=== PATIENT | male | born 1950 | race Caucasian/White ===

== ENCOUNTER → 2017-02-22 | Outpatient (CLI) | payer OTHER | LOC: FIMAGING 10:33 | PROVIDERS: ATTEND Family Medicine | DX: M51.36 Other intervertebral disc degeneration, lumbar region (principal); M41.86 Other forms of scoliosis, lumbar region; M43.16 Spondylolisthesis, lumbar region ==

== ENCOUNTER → 2017-03-10 | Outpatient (CLI) | payer OTHER | LOC: FIMAGING 10:10 | PROVIDERS: ATTEND Family Medicine | DX: M48.06 Spinal stenosis, lumbar region (principal); M43.16 Spondylolisthesis, lumbar region; M12.88 Other specific arthropathies, not elsewhere classified, other specified site; M51.36 Other intervertebral disc degeneration, lumbar region; M51.37 Other intervertebral disc degeneration, lumbosacral region; M51.26 Other intervertebral disc displacement, lumbar region; M99.73 Connective tissue and disc stenosis of intervertebral foramina of lumbar region ==

== ENCOUNTER → 2017-07-12 | Outpatient (CLI) | payer OTHER | LOC: FIMAGING 13:34 | PROVIDERS: ATTEND Physical Medicine & Rehabilitation Neuromuscular Medicine | DX: M51.36 Other intervertebral disc degeneration, lumbar region (principal) ==

== ENCOUNTER 2018-05-26 08:13 | Inpatient (IN) | payer OTHER ==
[2018-05-26] MEDS ORDERED: morphINE PF 0.2 MG in SYRINGE INTRATHECAL 1 SYR IT ONE (08:35)
[2018-05-26] MEDS ORDERED: ACETAMINOPHEN 500 MG TAB PO ONE (08:35)
[2018-05-26] MEDS ORDERED: ceFAZolin 2 GM/DEXTROSE 100 ML IV ONE (08:35)
[2018-05-26] MEDS ORDERED: GABAPENTIN 300 MG CAP PO ONE (08:35)
[2018-05-26] MEDS ORDERED: LR 1,000 ML IV ONE (08:40)
[2018-05-26] MEDS ORDERED: SURGIFLO MATRIX KIT WITH THROMBIN 8 ML TP ONE (08:52)
[2018-05-26] MEDS ORDERED: THROMBIN (BOVINE) 20,000 UNIT VIAL TP ONE (08:52)
[2018-05-26] MEDS ORDERED: BUPIVACAINE 0.25% 30 ML SDV ONE (08:52)
[2018-05-26] MEDS ORDERED: CHLORHEXIDINE GLUC HIBICLENS 118 ML BTL TP ONE (08:52)
[2018-05-26] MEDS ORDERED: EPINEPHrine 1 MG/ML INJ ONE (08:52)
[2018-05-26] MEDS ORDERED: BACITRACIN 50,000 UNITS/10 ML SYR IRR ONE (08:53)
--- NOTE | 2018-05-26 09:37 | PDHPUP ---
History & Physical Update H&P update statement: This history and physical update is based on an assessment of the patient which was completed after admission or registration (within 24 hours), but prior to the surgery/procedure. H&P update: H&P reviewed & patient examined, no change in patient's condition since H&P completed (Consents signed and site marked. All questions answered.)
[2018-05-26] MEDS ORDERED: MIDAZOLAM 2 MG/2 ML VIAL IVP ONE (09:58)
[2018-05-26] MEDS ORDERED: MIDAZOLAM 2 MG/2 ML VIAL ONE (09:59)
--- NOTE | 2018-05-26 10:02 | PDANEPAE ---
ANE Past Medical History - Cardiovascular History Hx Hypertension: No Hx Arrhythmias: No Hx Chest Pain: No Hx Coronary Artery / Peripheral Vascular Disease: No Hx CHF / Valvular Disease: No Hx Palpitations: No - Pulmonary History Hx COPD: No Hx Asthma/Reactive Airway Disease: No Hx Recent Upper Respiratory Infection: No Hx Oxygen in Use at Home: No Hx Sleep Apnea: No Sleep Apnea Screening Result - Last Documented: Negative - Neurologic History Hx Cerebrovascular Accident: No Hx Seizures: No Hx Dementia: No - Endocrine History Hx Diabetes: No Obesity: no - Renal History Hx Renal Disorders: No - Liver History Hx Hepatic Disorders: No - Neurological & Psychiatric Hx Hx Neurological and Psychiatric Disorders: No - Cancer History Hx Cancer: No - Congenital Disorder History Hx Congenital Disorders: No - GI History GERD: no Hx Gastrointestinal Disorders: No - Other Health History Other Health History: NEG - Chronic Pain History Chronic Pain: Yes (MELIA LEGS & LOW BACK) - Surgical History Prior Surgeries: COLONOSCOPY. TONSILLECTOMY ANE Review of Systems Review of Systems: - Exercise capacity METS (RN): 5 METS ANE Patient History - Allergies Allergies/Adverse Reactions: No Known Allergies Allergy (Unverified 05/05/18 13:47) - Home Medications Home medications: home medication list seen and reviewed Home Medications: Ibuprofen [Motrin (*)] 200 mg PO DAILY PRN 05/05/18 [Last Taken 05/26/18] oxyCODONE IR [Oxycodone Ir (*)] 5 mg PO Q4HRS PRN 05/05/18 [Last Taken 05/26/18] Tylenol Extra Strength 05/26/18 [Last Taken 05/26/18] - NPO status NPO Status: no food or drink >8 hours NPO Since - Liquids (Date): 05/26/18 NPO Since - Liquids (Time): 00:01 NPO Since - Solids (Date): 05/25/18 NPO Since - Solids (Time): 07:00 - Anes Hx Anes Hx: no prior problems - Smoking Hx Smoking Status: Former smoker - Family Anes Hx Family Hx Anesthesia Complications: NEG ANE Labs/Vital Signs - Vital Signs Blood Pressure: 142/88 Heart Rate: 65 Respiratory Rate: 16 O2 Sat (%): 96 Height: 177.8 cm Weight: 79.379 kg ANE Physical Exam - Airway Neck exam: FROM Mallampati Score: Class 1 Mouth exam: normal dental/mouth exam - Pulmonary Pulmonary: no respiratory distress, no rales or rhonchi, clear to auscultation - Cardiovascular Cardiovascular: regular rate and rhythym, no murmur, rub, or gallop - ASA Status ASA Status: II ANE Anesthesia Plan Anesthesia Plan: general endotracheal anesthesia
[2018-05-26] MEDS ORDERED: KETAMINE 500 MG/10 ML VIAL ONE (10:13)
[2018-05-26] MEDS ORDERED: PROPOFOL 200 MG/20 ML VIAL ONE (10:14)
[2018-05-26] MEDS ORDERED: DEXAMETHASONE 4 MG/ML VIAL ONE ×2 (10:23)
[2018-05-26] MEDS ORDERED: ONDANSETRON 4 MG/2 ML VIAL ONE (10:23)
[2018-05-26] MEDS ORDERED: DEXMEDETOMIDINE HCL 400 MCG in NS 100 ML IV SCH (10:30)
[2018-05-26] MEDS ORDERED: ROCURONIUM 50 MG/5 ML VIAL ONE (10:53)
[2018-05-26] MEDS ORDERED: PHENYLEPHRINE HCL 100 MCG/ML SYR ONE (10:59)
[2018-05-26] MEDS ORDERED: PHENYLEPHRINE 10 MG/ML SDV ONE (12:07)
[2018-05-26] MEDS ORDERED: GLYCOPYRROLATE 0.2 MG/1 ML VIAL ONE ×2 (12:19→13:53)
[2018-05-26] MEDS ORDERED: ACETAMINOPHEN 500 MG TAB PO PRN (13:40)
[2018-05-26] MEDS ORDERED: ONDANSETRON 4 MG/2 ML VIAL IVP PRN ×2 (13:40→16:13)
[2018-05-26] MEDS ORDERED: PHENYLEPHRINE HCL 100 MCG/ML SYR IVP PRN (13:40)
[2018-05-26] MEDS ORDERED: fentaNYL 100 MCG/2 ML INJ IVP PRN (13:40)
[2018-05-26] MEDS ORDERED: oxyCODONE IR 5 MG TAB PO PRN (13:40)
[2018-05-26] MEDS ORDERED: LR 500 ML IV PRN (13:40)
[2018-05-26] MEDS ORDERED: HYDROCODONE/APAP 5/325 TAB PO PRN (13:40)
[2018-05-26] MEDS ORDERED: DIAZEPAM 5 MG/ML 1 ML SYR IVP PRN (13:40)
[2018-05-26] MEDS ORDERED: PROMETHAZINE HCL 25 MG/ML INJ IVP PRN (13:40)
[2018-05-26] MEDS ORDERED: NALOXONE HCL 0.4 MG/ML INJ IVP PRN (13:40)
[2018-05-26] MEDS ORDERED: ceFAZolin 1 GM VIAL ONE (14:05)
--- NOTE | 2018-05-26 14:41 | POSTANESTH ---
Post Anesthetic Evaluation Cardiovascular Status: Normal, Stable, Similar to Pre-Op Cond Respiratory Status: Normal, Stable, Similar to Pre-op Cond. Level of Consciousness/Mental Status: Can Participate in Eval, Moderately Sleepy Pain Control: Adequate, Prn Tx Ordered Nausea/Vomiting Control: Adequate, Prn Tx Ordered Complications Possibly Related to Anesthesia: None Noted
--- NOTE | 2018-05-26 14:49 | POSTOPPROG ---
Post Op Note Date of Operation: 05/26/18 Surgeon: Maximino Orellana Stage Setting Painter Apprentice: Devaughn Garrett PA-C Anesthesiologist: Mary Jane Anesthesia: GET(General Endotracheal) Pre-op Diagnosis: lumbar degenerative disc disease Post-op Diagnosis: same Indication: pain, nerve compression Procedure: L4-S1 TLIFs and PSF with bilateral foraminotomies Findings: see dictation Inf/Abcess present in the surg proc area at time of surgery?: No Depth: Organ Space EBL: 100-500 Complications: none Drains: Juan Reid Specimen(s): none PA Addendum - Addendum .: S: Pt in PACU waking up from anesthesia. C/o low back pain. O: Sleepy but awakens easily NAD VSS Follows all commands Motor 5/5 BUE/BLE +LT Incision dressed [id number] Terrell A: 67 yo M s/p L4-S1 TLIFs and PSF with bilateral foraminotomies P: PT/OT Pain management TEDs, SCDs, lovenox POD#1 Brace when OOB Post op xrays pending tonny terrell in am Call NS with any issues D/w Dr Orellana
[2018-05-26] MEDS ORDERED: fentaNYL 100 MCG/2 ML INJ ONE (15:05)
--- NOTE | 2018-05-26 15:23 | GOP ---
[f rep st] OPERATIVE REPORT DATE OF OPERATION: 05/26/2018 SURGEON: Maximino Orellana MD ASSOCIATE MEDICAL DIRECTOR: LOGAN Sol ANESTHESIA: General. PREOPERATIVE DIAGNOSIS: 1. L4-S1 lumbar spondylosis. 2. Severe spinal stenosis L4-L5. 3. Lateral recess and foraminal stenosis L4-L5, L5-S1. 4. Lower extremity radiculopathy. 5. Low back pain. 6. Treatment refractory to nonoperative intervention. POSTOPERATIVE DIAGNOSIS: 1. L4-S1 lumbar spondylosis. 2. Severe spinal stenosis L4-L5. 3. Lateral recess and foraminal stenosis L4-L5, L5-S1. 4. Lower extremity radiculopathy. 5. Low back pain. 6. Treatment refractory to nonoperative intervention. PROCEDURE PERFORMED: 1. Posterior arthrodesis with approach to L4, L5, and S1. 2. Posterolateral fusion with bilateral pedicle screw placement at L4, L5, and S1 from the [employer] 4.75 system. 3. Posterolateral fusion on the right between L4-S1 with morselized autograft and allograft. 4. Decompressive laminectomy with bilateral medial facetectomies and foraminotomies, L4-L5 and L5-S1. 5. Left-sided L4-5 transforaminal lumbar interbody fusion with a 7 x 28 mm titanium PEEK Elevate cage filled with morselized autograft and allograft. 6. Left-sided L5-S1 transforaminal lumbar interbody fusion with a 6 x 26 mm titanium coated PEEK cage filled with morselized autograft and allograft. 7. Use of intraoperative 3D Stealth navigation. 8. Use of intraoperative fluoroscopy, less than 1 hour physician time. 9. Use of neuromonitoring. 10. Use of the operting microscope. 11. Injection of preservative-free intrathecal narcotics. FINDINGS: per imaging SPECIMENS: None. ESTIMATED BLOOD LOSS: 150 cc. INDICATIONS: The patient is a 67-year-old gentleman who unfortunately has been suffering from long-standing history of low back pain with left lower extremity radiculopathy. He has severe spinal stenosis L4-L5 and foraminal stenosis with lateral recess stenosis bilateral L4-5, L5-S1. After discussion of the risks, benefits, and alternatives after failing a prevention, we decided to proceed forth with surgery as described above. DESCRIPTION OF PROCEDURE: The patient was brought to the operating theater and underwent general endotracheal anesthesia without complications. He had Venodynes, RACHEL hose, and appropriate lines placed by Anesthesia. He was flipped prone on the Juan table. All bony processes inspected and padded. The lower lumbar region was prepped and draped in the usual sterile surgical fashion. A time-out was completed per protocol, and the patient received antibiotics within 1 hour of incision. Using lateral fluoroscopy and a spinal needle, we picked our entry point to the L4 through S1 levels. This was marked in the midline ad the incision infiltrated with Marcaine with epinephrine. The incision was taken down with the scalpel blade and then using monopolar, taken down the midline to the lumbodorsal fascia and subperiosteal dissection carried out to the transverse processes of L4, L5, S1 bilaterally with care to preserve the L3-4 facet joint. Deep retractors placed to maintain exposure. We confirmed our level using lateral fluoroscopy. We attached the 3D Stealth navigation clamp to the spinous process of L5 and completed a 3D Stealth navigation spin. Using 3D Stealth navigation, we placed the pilot safety inspector holes for the bilateral pedicle screws into L4, L5, and S1. All holes were manually palpated with no evidence of any cortical breaches. We then tapped and placed 6.5 x 45 mm screws bilaterally in L4, 6.5 x 55 mm screws bilaterally at L5, and 6.5 x 55 mm screws bilaterally in S1, all from [employer] Solera 4.75 system. Another 3D Stealth navigation spin demonstrated good placement of the hardware. At this point, the microscope was brought into the field to assist with microscopic dissection and to maintain illumination and magnification. Using a combination of the bur tip on the drill bit, Kerrison punches, and a Leksell rongeur, we completed a decompressive laminectomy with bilateral medial facetectomies. We also completed a right-sided foraminotomy with the banana Kerrison until we felt that everything was well decompressed on manual palpation. We completed an aggressive facetectomies on the left side between L4 -L5 and L5-S1. We distracted the interspace at L4-5 and completed a left-sided L4-5 diskectomy. We prepared the cartilaginous endplates and measured interbody space. We placed a 7 x 28 mm titanium PEEK Elevate cage filled with morselized autograft and allograft anteriorly toward the midline. We packed additional morcellized autograft in the disk space for interbody fusion. We let down the distraction and moved down to the L5-S1 interlaminar space. We completed a left-sided L5-S1 diskectomy and prepared the cartilaginous endplates. We measured the interbody space and placed a 6 x 26 mm titanium coated PEEK cage filled with morselized autograft and allograft anteriorly toward the midline. We let down distraction and decorticated the bone on the right side between L4 and S1. The wound was irrigated copiously with bacitracin irrigation. We placed 2 lordotic rods into the heads of the screws between L4 and S1, secured them down with cap screws, which were then tightened to the telephone sterilizer's setting. We placed morselized autograft and allograft on the right side between L4-S1 for posterolateral fusion. We injected preservative-free intrathecal narcotics. A drain was left in subfascial space and the wound then closed in multiple layers, including Vicryl sutures to deep layers and Dermabond for the skin. The patient's wounds were dressed sterilely. He was then flipped supine onto the transfer cart, where he was awakened, extubated, taken to the recovery room in stable condition. There were no changes in neuro monitoring. The sponge and instrument count were correct at the end of the case. COMPLICATIONS: None. /[id number]/MODL MTDD
[2018-05-26] MEDS ORDERED: ONDANSETRON DISINTEGRATING 4 MG TAB PO PRN (16:13)
[2018-05-26] MEDS ORDERED: HYDROmorphONE/DILAUDID 1 MG/ML INJ IVP PRN (16:13)
[2018-05-26] MEDS ORDERED: LACTULOSE 20 GM/30 ML UDCUP PO PRN (16:13)
[2018-05-26] MEDS ORDERED: BISACODYL 10 MG SUPP PR PRN (16:13)
[2018-05-26] MEDS ORDERED: MAGNESIUM HYDROXIDE 30 ML UDCUP PO PRN (16:13)
[2018-05-26] MEDS ORDERED: POLYETHYLENE GLYCOL 3350 17 GM PKT PO PRN (16:13)
[2018-05-26] MEDS ORDERED: diphenhydrAMINE 25 MG CAP PO PRN (16:13)
[2018-05-26] MEDS ORDERED: NS 1,000 ML IV SCH (16:15)
--- NOTE | 2018-05-26 16:50 | PDMN ---
Medical Necessity Medical necessity: [facility] IP only surgery; cpt 57081 & [id number] Lumbar Fusion
[2018-05-26] MEDS: PROPARACAINE 0.5% 15 ML OPHT DROP OP SCH ×2 (17:56→21:12)
[2018-05-26] MEDS: ceFAZolin 2 GM/DEXTROSE 100 ML IV SCH (17:56)
[2018-05-26] MEDS: METHOCARBAMOL 750 MG TAB PO PRN (18:28)
[2018-05-26] MEDS: ACETAMINOPHEN 500 MG TAB PO SCH (21:11)
[2018-05-26] MEDS: FAMOTIDINE 20 MG TAB PO SCH (21:11)
[2018-05-26] MEDS: SENNOSIDES/DOCUSATE SODIUM TAB PO SCH (21:11)
[2018-05-26] MEDS: oxyCODONE IR 5 MG TAB PO PRN (21:52)
[2018-05-27] MEDS: ceFAZolin 2 GM/DEXTROSE 100 ML IV SCH (03:02)
[2018-05-27] MEDS: METHOCARBAMOL 750 MG TAB PO PRN ×2 (06:19→15:08)
[2018-05-27] MEDS: ACETAMINOPHEN 500 MG TAB PO SCH ×3 (06:19→23:06)
[2018-05-27] MEDS: PROPARACAINE 0.5% 15 ML OPHT DROP OP SCH ×3 (06:20→16:09)
--- NOTE | 2018-05-27 09:22 | NEUSURGPN ---
Assessment/Plan: A: 67 yo M s/p L4-S1 TLIFs and PSF with bilateral foraminotomies POD#1 P: PT/OT Pain management TEDs, SCDs, lovenox POD#1 Brace when OOB Post op xrays pending Continue PHU drain Call NS with any issues D/w Dr Orellana Subjective: Pt resting in bed, states pain is well managed and doing ok. Objective: AAOx3 NAD VSS MAEx4 Motor 5/5 BLE +LT Incision dressed Urinary Catheter in Place: No Catheter Insertion Date: 05/26/18 - Physician Discussed Patient with : Esteban Neurosurgery Physical Exam - Vitals, I&O, Labs I and O 05/26/18 05/27/18 05/28/18 05:59 05:59 05:59 Intake Total 2900 Output Total 2365 Balance 535 Weight 79.379 kg Intake: Oral (ml) 1200 IV Intake (ml) 1700 Output: Urine (ml) 1875 Catheter 1875 Estimated Blood Loss (ml) 50 PHU Drain Output (ml) 440 #1 Posterior Back Juan 440 Reid Vital Signs Temp Pulse Resp BP Pulse Ox 36.6 C 47 L 16 108/57 L 96 05/27/18 07:29 05/27/18 07:29 05/27/18 07:29 05/27/18 07:29 05/27/18 07:29 ICD10 Worksheet Patient Problems: Problems Problem Status Onset Lumbar stenosis Acute - ICD10 Problem Qualifiers (1) Lumbar stenosis Qualifiers: Neurogenic claudication status: unspecified Qualified Code(s): M48.061 - Spinal stenosis, lumbar region without neurogenic claudication
[2018-05-27] MEDS: SENNOSIDES/DOCUSATE SODIUM TAB PO SCH ×2 (09:33→20:32)
[2018-05-27] MEDS: FAMOTIDINE 20 MG TAB PO SCH ×2 (09:34→20:33)
[2018-05-27] MEDS: oxyCODONE IR 5 MG TAB PO PRN ×3 (12:09→20:31)
[2018-05-27] MEDS: ENOXAPARIN 40 MG/0.4 ML SYR SC SCH (16:06)
--- NOTE | 2018-05-27 16:19 | ASMTCMCOM ---
CM Note CM Note Notes: Pt had planned surgery for spinal stenosis. OT/PT rec home. Anticipate pt will d/c when medically stable with family support. CM available for changes/needs. Date Signed: 05/27/2018 04:19 PM Electronically Signed By:OBDULIO Crawford
[2018-05-28] MEDS: METHOCARBAMOL 750 MG TAB PO PRN ×4 (00:49→23:30)
[2018-05-28] MEDS: oxyCODONE IR 5 MG TAB PO PRN ×7 (00:49→23:31)
[2018-05-28] MEDS: ACETAMINOPHEN 500 MG TAB PO SCH ×3 (04:46→23:30)
--- NOTE | 2018-05-28 07:40 | NEUSURGPN ---
Assessment/Plan: A: 67 yo M s/p L4-S1 TLIFs and PSF with bilateral foraminotomies POD#2 P: PT/OT Pain management, increased pain medications this morning. TEDs, SCDs, lovenox Brace when OOB Post op xrays pending Continue PHU drain, may d/c later today if output reduces. Call NS with any issues D/w Dr Orellana Subjective: incisional site, low back pain. Objective: NAD A&Ox3 MAEx4 5/5 and equal in BUE and BLE. Dressing c/d/i. PHU drain serosanguineous +LT Catheter Insertion Date: 05/26/18 - Physician Discussed Patient with : Esteban Neurosurgery Physical Exam - Vitals, I&O, Labs I and O 05/27/18 05/28/18 05/29/18 05:59 05:59 05:59 Intake Total 2900 2500 Output Total 2365 1360 Balance 535 1140 Weight 79.379 kg Intake: Oral (ml) 1200 2500 IV Intake (ml) 1700 Output: Urine (ml) 1875 1100 Catheter 1875 Toilet 50 Urinal 1050 Estimated Blood Loss (ml) 50 PHU Drain Output (ml) 440 260 #1 Posterior Back Juan 440 260 Reid Other: Intake Quantity Yes Sufficient Number of Voids Toilet 1 Urinal 1 Post Void Residual Scan Volume (ml) Toilet 400 Urinal 180 Vital Signs Temp Pulse Resp BP Pulse Ox 36.7 C 77 16 129/76 H 91 L 05/27/18 23:10 05/27/18 23:10 05/27/18 23:10 05/27/18 23:10 05/27/18 23:10 ICD10 Worksheet Patient Problems: Problems Problem Status Onset Lumbar stenosis Acute
[2018-05-28] MEDS: ENOXAPARIN 40 MG/0.4 ML SYR SC SCH (08:50)
[2018-05-28] MEDS: SENNOSIDES/DOCUSATE SODIUM TAB PO SCH ×2 (08:50→20:07)
[2018-05-28] MEDS: FAMOTIDINE 20 MG TAB PO SCH ×2 (08:51→20:07)
[2018-05-29] MEDS: oxyCODONE IR 5 MG TAB PO PRN ×3 (05:16→12:13)
[2018-05-29] MEDS: METHOCARBAMOL 750 MG TAB PO PRN (05:23)
[2018-05-29] MEDS: ACETAMINOPHEN 500 MG TAB PO SCH (05:30)
--- NOTE | 2018-05-29 07:09 | NEUSURGPN ---
Assessment/Plan: A: 67 yo M s/p L4-S1 TLIFs and PSF with bilateral foraminotomies POD#3 P: PT/OT Pain management, increased pain medications this morning. TEDs, SCDs, lovenox Brace when OOB Post op xrays with intact hardware d/c PHU drain Call NS with any issues D/w Dr Orellana Subjective: pain improved this morning. Denies any new leg pain, numbness, tingling or weakness. Objective: NAD A&Ox3 MAEx4 5/5 and equal in BUE and BLE. Dressing c/d/i. +LT Catheter Insertion Date: 05/26/18 - Physician Discussed Patient with : Esteban Neurosurgery Physical Exam - Vitals, I&O, Labs I and O 05/28/18 05/29/18 05/30/18 05:59 05:59 05:59 Intake Total 2500 900 Output Total 1360 90 Balance 1140 810 Intake: Oral (ml) 2500 900 Output: Urine (ml) 1100 Toilet 50 Urinal 1050 PHU Drain Output (ml) 260 90 #1 Posterior Back Juan 260 90 Reid Other: Intake Quantity Yes Yes Sufficient Number of Voids Toilet 1 1 Urinal 1 Number of Stools Toilet 1 Post Void Residual Scan Volume (ml) Toilet 400 Urinal 180 Vital Signs Temp Pulse Resp BP Pulse Ox 36.8 C 79 16 115/70 89 L 05/28/18 23:02 05/28/18 23:02 05/28/18 23:02 05/28/18 23:02 05/28/18 23:02 ICD10 Worksheet Patient Problems: Problems Problem Status Onset Lumbar stenosis Acute
[2018-05-29 08:57] VITALS: BP 131/77
[2018-05-29] MEDS: ENOXAPARIN 40 MG/0.4 ML SYR SC SCH (09:34)
[2018-05-29] MEDS: SENNOSIDES/DOCUSATE SODIUM TAB PO SCH (09:35)
[2018-05-29] MEDS: FAMOTIDINE 20 MG TAB PO SCH (09:35)
--- NOTE | 2018-06-07 13:35 | GDS ---
[f rep st] DISCHARGE SUMMARY CONSULTS: Physical Therapy, Occupational Therapy, Case Management. DISPOSITION: Home. HOSPITAL COURSE: The patient is a 67-year-old male patient who was seen by Dr. Orellana as an outpatie nt. He had a history of longstanding low back pain with lower extremity radiculopathy. Imaging demo nstrated severe spinal stenosis at L4-L5 and foraminal stenosis with lateral recess stenosis bilatera lly at L4-L5 and L5-S1. The patient tried and failed conservative management and after careful consi deration, elected to proceed with surgical intervention in the way of L4 through S1 TLIF and posterio r fusion with decompressive laminectomy. The procedure was performed by Dr. Maximino Orellana for which there were no known complications. Please see his operative report for further details. After the o peration, the patient was in stable condition and was transferred from the operating room to the PACU and from the PACU to the postsurgical floor. While on the floor, the patient received physical security specialist apy, occupational therapy, pain management, and DVT prophylaxis. He underwent a set of postoperative x-rays which demonstrated stable well-placed hardware. He continued to make good progress with ther apies and on postoperative day #3, the patient was subsequently discharged to home. DISCHARGE INSTRUCTIONS: Diet: As tolerated. Activity: No bending, lifting, or twisting. The roberto ent to wear his lumbar brace whenever out of bed. He will keep his incision clean and dry and avoid soaking the incision. MEDICATIONS: Please see the medication reconciliation. FOLLOWUP: The patient has been asked to follow up with Dr. Orellana in the office in approximately 2-3 weeks. We have asked the patient to call sooner with any additional questions or concerns at [phone]. /[id number]/MODL
== END 2018-05-29 14:04 | disposition home or self-care (01) | DRG 460 ==
LOC: F3N 08:23
PROVIDERS: ADMIT Neurological Surgery; ATTEND Neurological Surgery
PROC: 0SG00AJ Fusion of Lumbar Vertebral Joint with Interbody Fusion Device, Posterior Approach, Anterior Column, Open Approach (ICD-10-PCS; principal; 2018-05-26 10:15)
PROC: 00NY0ZZ Release Lumbar Spinal Cord, Open Approach (ICD-10-PCS; principal; 2018-05-26 10:15)
PROC: 0SG30AJ Fusion of Lumbosacral Joint with Interbody Fusion Device, Posterior Approach, Anterior Column, Open Approach (ICD-10-PCS; principal; 2018-05-26 10:15)
PROC: 4A1004G Monitoring of Central Nervous Electrical Activity, Intraoperative, Open Approach (ICD-10-PCS; principal; 2018-05-26 10:15)
PROC: 8E0WXBZ Computer Assisted Procedure of Trunk Region (ICD-10-PCS; principal; 2018-05-26 10:15)
DX: M47.27 Other spondylosis with radiculopathy, lumbosacral region (principal); M48.061 Spinal stenosis, lumbar region without neurogenic claudication; M48.07 Spinal stenosis, lumbosacral region
CPT/HCPCS: 97116-GP; 97161-GP; 97165-GO; 97530-GO; 97530-GP; 97535-GO; C1713; G8978-GP-CJ; G8979-GP-CI; G8987-GO-CJ; G8988-GO-CI; J0171; J0690; J1100; J1650; J2250; J2270; J2274; J2370; J2405; J2704; J3010

== ENCOUNTER → 2018-07-06 | Outpatient (CLI) | payer OTHER | LOC: FIMAGING 11:57 | PROVIDERS: ATTEND Physician Assistant Surgical | DX: Z98.1 Arthrodesis status (principal) ==

== ENCOUNTER → 2018-08-26 | Outpatient (CLI) | payer OTHER | LOC: FIMAGING 10:28 | PROVIDERS: ATTEND Physician Assistant Surgical | DX: Z98.1 Arthrodesis status (principal) ==

== ENCOUNTER → 2018-11-16 | Outpatient (CLI) | payer OTHER | LOC: FIMAGING 10:48 | PROVIDERS: ATTEND Physician Assistant | DX: M48.061 Spinal stenosis, lumbar region without neurogenic claudication (principal); M51.36 Other intervertebral disc degeneration, lumbar region; M43.16 Spondylolisthesis, lumbar region; M53.86 Other specified dorsopathies, lumbar region ==

== ENCOUNTER → 2018-12-06 | Outpatient (CLI) | payer OTHER | LOC: FIMAGING 17:46 | PROVIDERS: ATTEND Nurse Practitioner | DX: M43.16 Spondylolisthesis, lumbar region (principal); M47.26 Other spondylosis with radiculopathy, lumbar region; M54.40 Lumbago with sciatica, unspecified side; Z98.1 Arthrodesis status ==

== ENCOUNTER → 2018-12-15 | Outpatient (CLI) | payer OTHER | LOC: BHFA 15:30 | PROVIDERS: ATTEND Internal Medicine Cardiovascular Disease | DX: M79.669 Pain in unspecified lower leg (principal) ==